=== PATIENT | male | born 1995 | race Caucasian/White ===

== ENCOUNTER 2019-03-01 18:01 | Emergency (ER) | payer OTHER ==
[~2019-03-01] VITALS: Ht 177.8 cm; Wt 95.0 kg
[~2019-03-01 18:01] MED LIST: DAPA10TA PO; INSU100I32 SC; LIRA0.6P2 SC
[2019-03-01 18:03] VITALS: BP 145/92
[2019-03-01] MEDS ORDERED: KETOROLAC 30 MG/1 ML IM ONE (18:30)
[2019-03-01] MEDS ORDERED: KETOROLAC 30 MG/1 ML ONE (18:39)
--- NOTE | 2019-03-01 18:44 | NUR ---
PT MEDICATED ORDERED FOR -06/13 SHARP PAIN WITH "MOVEMENT"
== END 2019-03-01 20:01 | disposition home or self-care (01) ==
LOC: ED 19:29
DX: S92.351A Displaced fracture of fifth metatarsal bone, right foot, initial encounter for closed fracture (principal); E11.10 Type 2 diabetes mellitus with ketoacidosis without coma; W21.03XA Struck by baseball, initial encounter; Y93.64 Activity, baseball; Y92.89 Other specified places as the place of occurrence of the external cause; Y99.8 Other external cause status
CPT/HCPCS: 29515; 73630; 96372; 99283; J1885